=== PATIENT | female | born 1930 | race Caucasian/White ===

== ENCOUNTER → 2016-12-23 | Outpatient (REF) | payer MEDICARE, OTHER, MEDICAID ==
[~2016-12-23] MED LIST: /OLAN5ZYD PO; /QUET25TA OR; ACET50TA PO; BISA10SU PR; CALC600T7 PO; COLA50CA3 PO; EUCECRE2 TOP; FLEEENE4 PR; HALD5INJ2 IM; LASI40TA PO; LEVO88TA4 OR; MOM30SS PO; MULTLIQ PO; POTA20PO4 PO; SYNT137T7 PO; VITAD1000T PO; oysco PO
== END ==
LOC: SKLAB8 07:00
DX: E03.9 Hypothyroidism, unspecified (principal)

== ENCOUNTER → 2017-02-03 | Outpatient (REF) | payer MEDICARE, OTHER, MEDICAID | LOC: SKLAB8 08:00 | DX: E03.9 Hypothyroidism, unspecified (principal) ==

== ENCOUNTER → 2017-02-17 | Outpatient (REF) | payer MEDICARE, OTHER, MEDICAID | LOC: SKLAB8 07:00 | DX: E03.9 Hypothyroidism, unspecified (principal) ==

== ENCOUNTER → 2017-09-12 | Outpatient (REF) | payer MEDICARE, OTHER, MEDICAID | LOC: SKLAB8 16:00 | DX: R49.0 Dysphonia (principal) | CPT/HCPCS: 87804 ==